=== PATIENT | male | born 1960 | race Hispanic/Latino ===

== ENCOUNTER → 2018-05-15 | Outpatient (CLI) | payer OTHER | END | disposition home or self-care (01) | LOC: RAH 11:22 | PROVIDERS: ATTEND Internal Medicine | DX: M47.22 Other spondylosis with radiculopathy, cervical region (principal); M48.02 Spinal stenosis, cervical region; M50.10 Cervical disc disorder with radiculopathy, unspecified cervical region; M43.5X2 Other recurrent vertebral dislocation, cervical region; M15.0 Primary generalized (osteo)arthritis; M81.0 Age-related osteoporosis without current pathological fracture | CPT/HCPCS: 72141 ==

== ENCOUNTER 2020-07-28 23:17 | Emergency (ER) | payer OTHER ==
[2020-07-29] MEDS ORDERED: ALBUTEROL SULFATE 0.083% 2.5 MG/3 ML INH IH ONE (00:09)
== END 2020-07-29 00:59 | disposition home or self-care (01) ==
LOC: EDH 23:17
DX: L50.0 Allergic urticaria (principal); E78.00 Pure hypercholesterolemia, unspecified
CPT/HCPCS: 94640; 96374; 96375